=== PATIENT | male | born 1995 | race Two or more races ===

== ENCOUNTER 2016-05-08 13:24 | Emergency (ER) | payer OTHER ==
[2016-05-08 13:38] VITALS: BMI 27.8
--- NOTE | 2016-05-08 14:05 | PDOC ---
*Physical Exam - Vital Signs Last Vital Signs Temp Pulse Resp BP Pulse Ox 98.3 F 102 H 19 123/67 96 05/08/16 13:34 05/08/16 13:34 05/08/16 13:34 05/08/16 13:34 05/08/16 13:34 - Physical Exam Comments: 05/08/16 14:05 Pt seen by the Advanced Practice Provider under my direct supervision Pt interviewed and examined Ancillary studies reviewed I agree with plan as outlined by the Advanced Practice Provider ED Treatment Course - LABORATORY CBC & Chemistry Diagram: 05/08/16 14:50 05/08/16 14:50 *DC/Admit/Observation/Transfer Diagnosis at time of Disposition: Headache Qualifiers: Headache type: unspecified Headache chronicity pattern: acute headache Intractability: not intractable Qualified Code(s): R51 - Headache - Discharge Dispostion Disposition: HOME Condition at time of disposition: Good - Referrals Referrals: Mery Shin MD [Staff Physician] - Javier Suero [Primary Care Provider] - - Patient Instructions Printed Discharge Instructions: DI for Headache Additional Instructions: Please take Tylenol 650 mg every 6-8 hours for headache. Please eat small frequent meals thought the day and drinks plenty of water. please also follow-up with referred neurologist. - Post Discharge Activity Work/School Note: Back to Work
[2016-05-08] MEDS ORDERED: METOCLOPRAMIDE HCL INJECTION 10 MG/2 ML VIAL IVPB ONE (14:44)
[2016-05-08] MEDS ORDERED: SODIUM CHLORIDE 1,000 ML IV STA (14:44)
[2016-05-08] MEDS ORDERED: KETOROLAC TROMETHAMINE 30 MG/1 ML VIAL IVPUSH ONE (14:44)
[2016-05-08] MEDS ORDERED: METOCLOPRAMIDE HCL INJECTION 10 MG/2 ML VIAL ONE (14:56)
[2016-05-08] MEDS ORDERED: KETOROLAC TROMETHAMINE 30 MG/1 ML VIAL ONE (14:57)
[2016-05-08 15:04] LABS: BASOPHIL 0.4 % (0-2.0); EOSINOPHIL 1.1 % (0-4.5); MCH 27.6 pg (25.7-33.7); MCHC 33.6 g/dl (32.0-35.9); MEAN CELL VOLUME 82.2 fl (80-96); MEAN PLT VOLUME 7.2 fl (7.5-11.1); NEUTROPHILS 67.5 % (42.8-82.8); PLATELET COUNT 280 K/MM3 (134-434); RDW 13.5 % (11.9-15.9)
[2016-05-08 15:32] LABS: ALBUMIN 3.8 g/dl (3.4-5.0); ALK PHOS 117 U/L (45-117); ANION GAP 10 (8-16); BILIRUBIN,TOTAL 0.5 mg/dL (0.2-1.0); CALCIUM 8.9 mg/dL (8.5-10.1); CO2 25 mmol/L (21-32); CREATININE 0.7 mg/dL (0.7-1.3); GLUCOSE,RANDOM 96 mg/dL (74-106); MAGNESIUM 2.1 mg/dL (1.8-2.4); SGPT/ALT 38 U/L (12-78); TOT PROT 7.5 g/dl (6.4-8.2)
[2016-05-08 15:33] LABS: SGOT/AST 21 U/L (15-37)
--- NOTE | 2016-05-08 16:08 | PDOC ---
History of Present Illness - General Chief Complaint: Lightheaded Stated Complaint: DIZZINESS, HEADACHES Time Seen by Provider: 05/08/16 13:51 History Source: Patient Exam Limitations: No Limitations - History of Present Illness Initial Comments: 05/08/16 15:09 20-year-old male with no past medical history presents to the ED with some moderate frontal throbbing discomfort for the past 2 days now associated with dizziness, and nausea. Patient states has not been able to eat secondary to the above and has no complaints of neck stiffness, fever, chills, visual changes, recent head injury, recent travel, or recent illness. Patient states has had headaches like this in the past but never with nausea. Timing/Duration: other (2 days) Severity: mild Associated Symptoms: reports: headaches, nausea/vomiting, other (mild dizziness) Past History - Past Medical History Allergies/Adverse Reactions: Allergies Allergy/AdvReac Type Severity Reaction Status Date / Time Penicillins Allergy Intermediate Rash Verified 05/08/16 13:34 Asthma: Yes - Immunization History Immunization Up to Date: Yes - Psycho/Social/Smoking Cessation Hx Anxiety: No Suicidal Ideation: No Smoking History: Never smoked Have you smoked in the past 12 months: No Hx Alcohol Use: No Substance Use Type: None Patient Lives Alone: No Lives with/in: parents Review of Systems - Review of Systems Able to Perform ROS?: Yes Constitutional: Yes: Loss of Appetite HEENTM: No: Symptoms Reported Respiratory: No: Symptoms reported Cardiac (ROS): Yes: Lightheadedness ABD/GI: Yes: Nausea, Poor Appetite, Poor Fluid Intake Musculoskeletal: No: Symptoms Reported Integumentary: No: Symptoms Reported Neurological: Yes: Headache Endocrine: No: Symptoms Reported Hematologic/Lymphatic: No: Symptoms Reported *Physical Exam - Vital Signs Last Vital Signs Temp Pulse Resp BP Pulse Ox 98.3 F 102 H 19 123/67 96 05/08/16 13:34 05/08/16 13:34 05/08/16 13:34 05/08/16 13:34 05/08/16 13:34 - Physical Exam General Appearance: Yes: Nourished, Appropriately Dressed. No: Apparent Distress HEENT: positive: EOMI, CECILIA, TMs Normal, Pharynx Normal. negative: Pale Conjunctivae Neck: positive: Supple Respiratory/Chest: positive: Lungs Clear, Normal Breath Sounds. negative: Respiratory Distress, Accessory Muscle Use Cardiovascular: positive: Regular Rhythm, Regular Rate. negative: Murmur Gastrointestinal/Abdominal: positive: Soft. negative: Tenderness Extremity: positive: Normal Capillary Refill. negative: Pedal Edema Integumentary: positive: Normal Color, Warm, Moist Neurologic: positive: Normal Mood/Affect, Motor Strength 5/5 (ambulatory) ED Treatment Course - LABORATORY CBC & Chemistry Diagram: 05/08/16 14:50 05/08/16 14:50 - ADDITIONAL ORDERS Additional order review: Laboratory Results 05/08/16 14:50 Sodium 141 Potassium 4.1 Chloride 106 Carbon Dioxide 25 Anion Gap 10 BUN 12 Creatinine 0.7 Creat Clearance w eGFR > 60 Random Glucose 96 Calcium 8.9 Magnesium 2.1 Total Bilirubin 0.5 AST 21 ALT 38 Alkaline Phosphatase 117 Total Protein 7.5 Albumin 3.8 05/08/16 14:50 RBC 5.48 MCV 82.2 MCHC 33.6 RDW 13.5 MPV 7.2 L Neutrophils % 67.5 Lymphocytes % 24.8 Monocytes % 6.2 Eosinophils % 1.1 Basophils % 0.4 - Medications Given in the ED: ED Medications Discontinued Medications Generic Name Dose Route Start Last Admin Trade Name Freq PRN Reason Stop Dose Admin Sodium Chloride 1,000 mls @ 1,000 mls/hr 05/08/16 14:44 05/08/16 15:09 Normal Saline - IV 05/08/16 15:43 1,000 mls/hr ASDIR STA Administration Ketorolac Tromethamine 30 mg 05/08/16 14:44 05/08/16 15:10 Toradol Injection - IVPUSH 05/08/16 14:45 30 mg ONCE ONE Administration Metoclopramide HCl 10 mg 05/08/16 14:44 05/08/16 15:10 Reglan Injection - IVPB 05/08/16 14:45 10 mg ONCE ONE Administration Medical Decision Making - Medical Decision Making 05/08/16 15:41 Patient with complaints of headache, mild lightheadedness, nausea and poor by mouth intake for the past 2 days. Patient has no other complaints at this time. patient had no acute findings on exam. Patient with likely headache/ dehydration. Patient will be ordered for labs antiemetics, NSAID, and urine. 05/08/16 16:42 Selected Entries 05/08/16 16:30 Temperature 98.2 F Pulse Rate [ 92 H Left Radial] Respiratory 18 Rate Blood Pressure 117/53 [Left Arm] O2 Sat by Pulse 98 Oximetry (%) Laboratory Tests 05/08/16 05/08/16 05/08/16 14:50 14:50 16:09 WBC 10.0 Hgb 15.1 Hct 45.0 Neutrophils % 67.5 Sodium 141 Potassium 4.1 Chloride 106 Carbon Dioxide 25 Anion Gap 10 BUN 12 Creatinine 0.7 Random Glucose 96 Calcium 8.9 Magnesium 2.1 Total Bilirubin 0.5 AST 21 ALT 38 Urine Ketones Negative Urine Nitrite Negative Ur Leukocyte Esterase Negative Patient states feeling much better and eating a lunch tray. Patient be discharged home with recommendations to take Tylenol and given referral to migraine specialist Dr. Shin. *DC/Admit/Observation/Transfer Diagnosis at time of Disposition: Headache Qualifiers: Headache type: unspecified Headache chronicity pattern: acute headache Intractability: not intractable Qualified Code(s): R51 - Headache - Referrals Referrals: Javier Suero [Primary Care Provider] - Mery Shin MD [Staff Physician] - - Patient Instructions Printed Discharge Instructions: DI for Headache Additional Instructions: Please take Tylenol 650 mg every 6-8 hours for headache. Please eat small frequent meals thought the day and drinks plenty of water. please also follow-up with referred neurologist. - Post Discharge Activity Work/School Note: Back to Work
[2016-05-08 16:14] VITALS: BP 117/53; PULSE 92; TEMP 98.2
[2016-05-08 16:17] LABS: URINE APPEARANCE CLEAR; URINE BILIRUBIN NEGATIVE (NEGATIVE); URINE BLOOD NEGATIVE (NEGATIVE); URINE COLOR LTYELLOW; URINE GLUCOSE (UA) NEGATIVE (NEGATIVE); URINE KETONE NEGATIVE (NEGATIVE); URINE LEUK ESTERASE NEGATIVE (NEGATIVE); URINE NITRITE NEGATIVE (NEGATIVE); URINE PROTEIN NEGATIVE (NEGATIVE); URINE UROBILINOGEN NEGATIVE E.U./dl (0.2-1.0)
== END 2016-05-08 16:51 | disposition home or self-care (01) ==
LOC: JER 13:24
PROC: 3E0333Z Introduction of Anti-inflammatory into Peripheral Vein, Percutaneous Approach (ICD-10-PCS; principal; 2016-05-08)
PROC: 3E033GC Introduction of Other Therapeutic Substance into Peripheral Vein, Percutaneous Approach (ICD-10-PCS; 2016-05-08)
DX: R51 Headache (principal)
CPT/HCPCS: 36415; 80053; 81003; 83735; 85025; 99283-25

== ENCOUNTER 2018-02-16 13:37 | Emergency (ER) | payer OTHER ==
[2018-02-16 13:48] VITALS: BP 130/76; PULSE 110; TEMP 99.2; BMI 32.1
--- NOTE | 2018-02-16 14:52 | PDOC ---
History of Present Illness - General Chief Complaint: Respiratory Stated Complaint: Respiratory Time Seen by Provider: 02/16/18 14:05 History Source: Patient - History of Present Illness Timing/Duration: reports: other Associated Symptoms: reports: cough, nasal congestion. denies: earache, fever/ chills, shortness of breath, sore throat, wheezing Past History - Past Medical History Allergies/Adverse Reactions: Allergies Allergy/AdvReac Type Severity Reaction Status Date / Time Penicillins Allergy Intermediate Rash Verified 02/16/18 13:45 Asthma: Yes COPD: No - Immunization History Immunization Up to Date: Yes - Suicide/Smoking/Psychosocial Hx Smoking History: Never smoked Have you smoked in the past 12 months: No Hx Alcohol Use: No Drug/Substance Use Hx: No Substance Use Type: None Review of Systems - Review of Systems Constitutional: No: Chills, Fever Respiratory: Yes: Cough. No: Shortness of Breath, Wheezing Cardiac (ROS): No: Chest Pain *Physical Exam - Vital Signs Last Vital Signs Temp Pulse Resp BP Pulse Ox 99.2 F 110 H 18 130/76 98 02/16/18 13:46 02/16/18 13:46 02/16/18 13:46 02/16/18 13:46 02/16/18 13:46 - Physical Exam General Appearance: Yes: Appropriately Dressed. No: Apparent Distress HEENT: positive: Normal Voice Neck: positive: Supple. negative: Lymphadenopathy (R), Lymphadenopathy (L) Respiratory/Chest: positive: Lungs Clear, Normal Breath Sounds. negative: Respiratory Distress Cardiovascular: positive: Regular Rate, S1, S2 Integumentary: positive: Dry, Warm Neurologic: positive: Fully Oriented, Alert, Normal Mood/Affect Moderate Sedation - Procedure Monitoring Vital Signs: Procedure Monitoring Vital Signs Temperature 99.2 F 02/16/18 13:46 Pulse Rate 110 H 02/16/18 13:46 Respiratory Rate 18 02/16/18 13:46 Blood Pressure 130/76 02/16/18 13:46 O2 Sat by Pulse Oximetry (%) 98 02/16/18 13:46 Medical Decision Making - Medical Decision Making 02/16/18 14:49 22-year-old male, history of asthma, here with mostly non-productive cough with congestion 1 week. No shortness of breath, wheezing, chest pain, fever or chills. No tobacco history. No history of pneumonia. 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 States his job does not provide him a mask See exam M/l viral URI Tachy to 110 at triage, improved to 90 on my reassessment, chest/lungs clear -dc w/ supportive tx and pmd f/u as needed *DC/Admit/Observation/Transfer Diagnosis at time of Disposition: URI (upper respiratory infection) Qualifiers: URI type: unspecified viral URI Qualified Code(s): J06.9 - Acute upper respiratory infection, unspecified - Discharge Dispostion Disposition: HOME Condition at time of disposition: Good - Referrals - Patient Instructions Printed Discharge Instructions: DI for Viral Upper Respiratory Infection -- Adult - Post Discharge Activity Forms/Work/School Notes: Back to Work
== END 2018-02-16 15:20 | disposition home or self-care (01) ==
LOC: JERFT 13:37
DX: J06.9 Acute upper respiratory infection, unspecified (principal); B97.89 Other viral agents as the cause of diseases classified elsewhere; Z87.09 Personal history of other diseases of the respiratory system
CPT/HCPCS: 99281-25

== ENCOUNTER 2020-05-27 13:55 | Emergency (ER) | payer OTHER ==
[2020-05-27 13:59] VITALS: BP 159/79; PULSE 120; TEMP 98.4; BMI 34.8
[2020-05-27] MEDS ORDERED: SODIUM CHLORIDE 0.9% 500 ML INFUS.BAG IV ONE (15:35)
[2020-05-27] MEDS ORDERED: ACETAMINOPHEN 500 MG TABLET (FP) PO ONE (15:36)
[2020-05-27 15:55] LABS: BASO % 0.2 % (0-2.0); HEMATOCRIT 43.4 % (35.4-49); HEMOGLOBIN 14.5 GM/dL (11.7-16.9); MCH 27.7 pg (25.7-33.7); MCHC 33.3 g/dl (32.0-35.9); MEAN PLT VOLUME 7.1 fl (7.5-11.1); MONO % 12.5 % (3.8-10.2); NEUT % 77.3 % (42.8-82.8); PLATELET COUNT 260 K/MM3 (134-434); RBC 5.23 M/mm3 (4.00-5.60); RDW 13.8 % (11.9-15.9); WHITE BLOOD COUNT 6.2 K/mm3 (4.0-10.0)
[2020-05-27] MEDS ORDERED: ACETAMINOPHEN 325 MG TABLET (FP) ONE (16:13)
[2020-05-27 16:17] LABS: POTASSIUM 4.3 mmol/L (3.5-5.1)
[2020-05-27 16:19] LABS: CALCIUM 8.8 mg/dL (8.5-10.1)
[2020-05-27 16:20] LABS: ALBUMIN 3.7 g/dl (3.4-5.0); BLOOD UREA NITROGEN 9.3 mg/dL (7-18)
[2020-05-27 16:23] LABS: CREATININE 0.8 mg/dL (0.55-1.3)
[2020-05-27 16:25] LABS: BILIRUBIN,TOTAL 0.4 mg/dL (0.2-1); TOT PROT 7.5 g/dl (6.4-8.2)
== END 2020-05-27 17:37 | disposition home or self-care (01) ==
LOC: JER 13:55
DX: U07.1 COVID-19 (principal)
CPT/HCPCS: 36415; 71045-TC-FY; 80053; 85025; 99284-25; C9803; U0003

== ENCOUNTER 2020-09-13 10:13 | Emergency (ER) | payer OTHER ==
[2020-09-13 10:20] VITALS: TEMP 98.6; BMI 34.7
[2020-09-13] MEDS ORDERED: SODIUM CHLORIDE 1,000 ML IV STA (10:46)
[2020-09-13] MEDS ORDERED: ACETAMINOPHEN 1000 MG/100 ML VIAL (NON FORMULARY) IVPB ONE (10:46)
[2020-09-13] MEDS ORDERED: ONDANSETRON 4 MG/2 ML VIAL IVPUSH ONE (10:46)
[2020-09-13] MEDS ORDERED: ACETAMINOPHEN INJECTION 100 ML IVPB ONE (11:11)
[2020-09-13] MEDS ORDERED: ONDANSETRON 4 MG/2 ML VIAL ONE (11:12)
[2020-09-13 11:42] LABS: BASO % 0.4 % (0-2.0); EOS % 2.1 % (0-4.5); HEMATOCRIT 46.9 % (35.4-49); HEMOGLOBIN 15.5 GM/dL (11.7-16.9); LYMPH % 28.7 % (8-40); MCH 26.9 pg (25.7-33.7); MCHC 33.1 g/dl (32.0-35.9); MEAN CELL VOLUME 81.5 fl (80-96); MEAN PLT VOLUME 7.1 fl (7.5-11.1); MONO % 7.1 % (3.8-10.2); NEUT % 61.7 % (42.8-82.8); PLATELET COUNT 365 10^3/uL (134-434); RBC 5.76 M/mm3 (4.00-5.60); RDW 13.8 % (11.9-15.9); WHITE BLOOD COUNT 10.2 K/mm3 (4.0-10.0)
[2020-09-13 11:51] LABS: INR 1.04 (0.83-1.09); PROTHROMBIN TIME (PATIENT) 12.8 SEC (9.7-13.0)
[2020-09-13 11:55] LABS: URINE APPEARANCE Clear; URINE BILIRUBIN Negative (NEGATIVE); URINE COLOR Yellow; URINE GLUCOSE (UA) Negative (NEGATIVE); URINE KETONE Negative (NEGATIVE); URINE LEUK ESTERASE Negative (NEGATIVE); URINE NITRITE Negative (NEGATIVE); URINE PROTEIN Negative (NEGATIVE); URINE UROBILINOGEN 0.2 mg/dL (0.2-1.0)
[2020-09-13 12:08] LABS: ALBUMIN 3.8 g/dl (3.4-5.0); CALCIUM 8.8 mg/dL (8.5-10.1)
[2020-09-13 12:09] LABS: BLOOD UREA NITROGEN 10.2 mg/dL (7-18)
[2020-09-13 12:12] LABS: CREATININE 0.7 mg/dL (0.55-1.3)
[2020-09-13 12:14] LABS: BILIRUBIN,TOTAL 0.7 mg/dL (0.2-1); TOT PROT 7.9 g/dl (6.4-8.2)
[2020-09-13 16:32] VITALS: BP 139/83; PULSE 76
== END 2020-09-13 16:25 | disposition home or self-care (01) ==
LOC: JER 10:13
PROC: 3E033NZ Introduction of Analgesics, Hypnotics, Sedatives into Peripheral Vein, Percutaneous Approach (ICD-10-PCS; principal; 2020-09-13)
PROC: 3E033GC Introduction of Other Therapeutic Substance into Peripheral Vein, Percutaneous Approach (ICD-10-PCS; 2020-09-13)
PROC: 3E0337Z Introduction of Electrolytic and Water Balance Substance into Peripheral Vein, Percutaneous Approach (ICD-10-PCS; 2020-09-13)
DX: R10.84 Generalized abdominal pain (principal)
CPT/HCPCS: 36415; 74177-TC; 80053; 81003; 85025; 85610; 86850; 86900; 86901; 87086; 93005; 93010; 99285-25; J0131; Q9967

== ENCOUNTER 2021-01-02 18:58 | Emergency (ER) | payer OTHER ==
[2021-01-02 19:05] VITALS: BP 130/83; PULSE 100; TEMP 97.9; BMI 34.8
== END 2021-01-02 19:33 | disposition home or self-care (01) ==
LOC: JERFT 18:58
DX: R21 Rash and other nonspecific skin eruption (principal)
CPT/HCPCS: 99281-25

== ENCOUNTER 2021-06-02 16:58 | Emergency (ER) | payer OTHER ==
[2021-06-02 17:26] VITALS: BP 109/72; PULSE 73; TEMP 98.3; BMI 34.8
[2021-06-02] MEDS ORDERED: LIDOCAINE HCL 1%, 10 MG/ML (20ML VIAL) ONE (17:51)
[2021-06-02] MEDS ORDERED: IBUPROFEN 600 MG TABLET (FP) PO ONE ×2 (18:39→18:40)
[2021-06-02] MEDS ORDERED: LIDOCAINE HCL 1%, 10 MG/ML (50 mL VIAL) SQ ONE (18:39)
== END 2021-06-02 18:35 | disposition home or self-care (01) ==
LOC: JER 16:58
DX: L60.0 Ingrowing nail (principal)
CPT/HCPCS: 99283-25

== ENCOUNTER 2021-12-02 04:30 | Emergency (ER) | payer OTHER ==
[2021-12-02 04:49] VITALS: BP 142/89; PULSE 96; RESP 17; TEMP 98.5; BMI 41.8
[2021-12-02] MEDS ORDERED: ONDANSETRON 4 MG/2 ML VIAL IVPUSH ONE (05:09)
[2021-12-02] MEDS ORDERED: MAG HYDROX/AL HYDROX/SIMETH -MYLANTA- ORAL SUSPENSION PO ONE (05:09)
[2021-12-02] MEDS ORDERED: FAMOTIDINE 20 MG/50 ML IVPB 20 MG/50 ML MG IVPB ONE ×2 (05:09→05:57)
[2021-12-02] MEDS ORDERED: ACETAMINOPHEN 1000 MG/100 ML BAG IVPB ONE (05:09)
[2021-12-02] MEDS ORDERED: LACTATED RINGERS SOLUTION 1000 ML INFUS.BAG IV ONE (05:09)
[2021-12-02] MEDS ORDERED: MAG HYDROX/AL HYDROX/SIMETH 30 ML UNIT-DOSE CUP ONE (05:14)
[2021-12-02] MEDS ORDERED: ACETAMINOPHEN INJECTION 100 ML IVPB ONE (05:14)
[2021-12-02] MEDS ORDERED: ONDANSETRON 4 MG/2 ML VIAL ONE (05:20)
[2021-12-02 06:03] LABS: BASO % 0.3 % (0-2.0); EOS % 3.5 % (0-4.5); HEMATOCRIT 42.6 % (35.4-49); HEMOGLOBIN 14.2 GM/dL (11.7-16.9); LYMPH % 19.7 % (8-40); MCH 26.4 pg (25.7-33.7); MCHC 33.2 g/dl (32.0-35.9); MEAN CELL VOLUME 79.6 fl (80-96); MEAN PLT VOLUME 7.1 fl (7.5-11.1); MONO % 6.3 % (3.8-10.2); NEUT % 70.2 % (42.8-82.8); PLATELET COUNT 322 10^3/uL (134-434); RBC 5.36 M/mm3 (4.00-5.60); RDW 14.1 % (11.9-15.9); WHITE BLOOD COUNT 10.6 K/mm3 (4.0-10.0)
[2021-12-02 06:27] LABS: CALCIUM 8.7 mg/dL (8.5-10.1)
[2021-12-02 06:28] LABS: ALBUMIN 3.4 g/dl (3.4-5.0); BLOOD UREA NITROGEN 9.3 mg/dL (7-18)
[2021-12-02 06:31] LABS: CREATININE 0.7 mg/dL (0.55-1.3)
[2021-12-02 06:32] LABS: TOT PROT 7.2 g/dl (6.4-8.2)
[2021-12-02 06:33] LABS: BILIRUBIN,TOTAL 0.4 mg/dL (0.2-1)
== END 2021-12-02 06:59 | disposition home or self-care (01) ==
LOC: JER 04:30
PROC: 3E0333Z Introduction of Anti-inflammatory into Peripheral Vein, Percutaneous Approach (ICD-10-PCS; principal; 2021-12-02)
PROC: 3E033GC Introduction of Other Therapeutic Substance into Peripheral Vein, Percutaneous Approach (ICD-10-PCS; 2021-12-02)
PROC: 3E033GC Introduction of Other Therapeutic Substance into Peripheral Vein, Percutaneous Approach (ICD-10-PCS; 2021-12-02)
DX: R10.10 Upper abdominal pain, unspecified (principal); R19.7 Diarrhea, unspecified; R11.2 Nausea with vomiting, unspecified
CPT/HCPCS: 0241U-QW; 36415; 80053; 83690; 84484; 85025; 93005; 93010; 99284-25

== ENCOUNTER 2021-12-12 13:36 | Emergency (ER) | payer OTHER ==
[2021-12-12 13:50] VITALS: BP 130/75; PULSE 103; RESP 20; TEMP 98.3; BMI 36.2
[2021-12-12 16:19] LABS: THROAT:GRP A STREP NOT DETECTED (NOTDETECTED)
== END 2021-12-12 16:47 | disposition home or self-care (01) ==
LOC: JERFT 13:36
DX: J02.9 Acute pharyngitis, unspecified (principal)
CPT/HCPCS: 0241U-QW; 87651; 99283-25

== ENCOUNTER 2022-02-09 13:31 | Emergency (ER) | payer OTHER ==
[2022-02-09 13:50] VITALS: BP 121/74; PULSE 100; RESP 18; TEMP 99.5; BMI 34.8
== END 2022-02-09 15:49 | disposition home or self-care (01) ==
LOC: JER 13:31
DX: J06.9 Acute upper respiratory infection, unspecified (principal)
CPT/HCPCS: 0241U-QW; 99283-25

== ENCOUNTER 2022-06-17 12:46 | Emergency (ER) | payer OTHER ==
[2022-06-17 13:05] VITALS: BP 111/74; PULSE 98; RESP 20; TEMP 99.1; BMI 33.5
[2022-06-17] MEDS ORDERED: ACETAMINOPHEN 500 MG TABLET (FP) PO ONE (14:37)
[2022-06-17] MEDS ORDERED: DIPHTH,PERTUSS(ACELL),TET 0.5 ML DISP.SYRIN IM ONE (14:37)
[2022-06-17 15:52] LABS: BASO % 0.8 % (0-2.0); EOS % 1.8 % (0-4.5); HEMATOCRIT 41.5 % (35.4-49); HEMOGLOBIN 14.4 GM/dL (11.7-16.9); LYMPH % 23.2 % (8-40); MCH 26.9 pg (25.7-33.7); MCHC 34.7 g/dl (32.0-35.9); MEAN CELL VOLUME 77.5 fl (80-96); MEAN PLT VOLUME 7.1 fl (7.5-11.1); MONO % 7.3 % (3.8-10.2); NEUT % 66.9 % (42.8-82.8); PLATELET COUNT 279 10^3/uL (134-434); RBC 5.35 M/mm3 (4.00-5.60); RDW 14.4 % (11.9-15.9); WHITE BLOOD COUNT 6.3 K/mm3 (4.0-10.0)
[2022-06-17 16:05] LABS: INR 1.11 (0.83-1.09); PROTHROMBIN TIME (PATIENT) 12.9 SEC (9.7-13.0)
[2022-06-17 16:06] LABS: ACTIVATED PTT 33.9 SECONDS (25.2-36.5)
[2022-06-17 16:13] LABS: BLOOD UREA NITROGEN 7.6 mg/dL (7-18); MAGNESIUM 2.2 mg/dL (1.8-2.4)
[2022-06-17 16:14] LABS: ALBUMIN 3.5 g/dl (3.4-5.0)
[2022-06-17 16:17] LABS: BILIRUBIN,TOTAL 0.5 mg/dL (0.2-1); CREATININE 0.6 mg/dL (0.55-1.3); TOT PROT 7.4 g/dl (6.4-8.2)
[2022-06-17 16:23] LABS: PH,URINE 6.5 (5.0-8.0); URINE APPEARANCE CLEAR; URINE BILIRUBIN NEGATIVE (NEGATIVE); URINE COLOR YELLOW; URINE GLUCOSE (UA) NEGATIVE (NEGATIVE); URINE KETONE 1+ (NEGATIVE); URINE LEUK ESTERASE NEGATIVE (NEGATIVE); URINE NITRITE NEGATIVE (NEGATIVE); URINE PROTEIN TRACE (NEGATIVE)
[2022-06-17] MEDS ORDERED: FAMOTIDINE 20 MG/50 ML IVPB 20 MG/50 ML MG IVPB ONE (17:44)
[2022-06-17] MEDS ORDERED: MAG HYDROX/AL HYDROX/SIMETH 30 ML UNIT-DOSE CUP PO ONE (17:44)
[2022-06-17] MEDS ORDERED: ONDANSETRON 4 MG/2 ML VIAL IVPUSH ONE (17:44)
== END 2022-06-17 19:29 | disposition home or self-care (01) ==
LOC: JER 12:46
DX: R10.84 Generalized abdominal pain (principal); R11.2 Nausea with vomiting, unspecified; R63.0 Anorexia; Z20.822 Contact with and (suspected) exposure to COVID-19
CPT/HCPCS: 0241U-QW; 36415; 74177-TC; 80053; 81003; 83690; 83735; 85025; 85610; 85730; 86850; 86900; 86901; 87086; 93005; 93010; 99285-25; Q9967

== ENCOUNTER 2022-09-04 20:19 | Emergency (ER) | payer OTHER ==
[2022-09-04 20:25] VITALS: BP 114/75; PULSE 101; RESP 18; TEMP 97; BMI 47.1
[2022-09-04] MEDS ORDERED: ACETAMINOPHEN 325 MG TABLET (FP) PO ONE (21:04)
[2022-09-04] MEDS ORDERED: IBUPROFEN 400 MG TABLET (FP) PO ONE ×2 (21:04→21:08)
[2022-09-04] MEDS ORDERED: ACETAMINOPHEN 325 MG TABLET (FP) ONE (21:08)
== END 2022-09-04 22:07 | disposition home or self-care (01) ==
LOC: JERFT 20:19
DX: S80.11XA Contusion of right lower leg, initial encounter (principal); W22.8XXA Striking against or struck by other objects, initial encounter
CPT/HCPCS: 73562-TC-RT-FY; 73590-TC-RT-FY; 99283-25

== ENCOUNTER 2022-10-09 04:54 | Emergency (ER) | payer OTHER ==
[2022-10-09 05:00] VITALS: BMI 87.6
[2022-10-09] MEDS ORDERED: ACETAMINOPHEN 1000 MG/100 ML BAG IVPB ONE (05:30)
[2022-10-09] MEDS ORDERED: ACETAMINOPHEN INJECTION 100 ML IVPB ONE (05:32)
[2022-10-09 06:32] LABS: BASO % 0.3 % (0-2.0); EOS % 2.2 % (0-4.5); HEMATOCRIT 41.7 % (35.4-49); HEMOGLOBIN 13.6 GM/dL (11.7-16.9); LYMPH % 27.4 % (8-40); MCHC 32.6 g/dl (32.0-35.9); MEAN CELL VOLUME 79.6 fl (80-96); NEUT % 63.1 % (42.8-82.8); PLATELET COUNT 306 10^3/uL (134-434); RBC 5.23 M/mm3 (4.00-5.60); WHITE BLOOD COUNT 9.5 K/mm3 (4.0-10.0)
[2022-10-09 06:45] LABS: INR 1.05 (0.83-1.09); PROTHROMBIN TIME (PATIENT) 12.2 SEC (9.7-13.0)
[2022-10-09 06:48] VITALS: PULSE 94
[2022-10-09 06:48] LABS: ACTIVATED PTT 31.2 SECONDS (25.2-36.5)
[2022-10-09 06:49] LABS: POTASSIUM 4.5 mmol/L (3.5-5.1)
[2022-10-09 06:51] LABS: CALCIUM 8.3 mg/dL (8.5-10.1)
[2022-10-09 06:52] LABS: ALBUMIN 3.4 g/dl (3.4-5.0); BLOOD UREA NITROGEN 12.4 mg/dL (7-18)
[2022-10-09 06:55] LABS: CREATININE 0.9 mg/dL (0.55-1.3)
[2022-10-09 06:56] LABS: BILIRUBIN,TOTAL 0.2 mg/dL (0.2-1)
[2022-10-09 06:57] LABS: TOT PROT 7.1 g/dl (6.4-8.2)
[2022-10-09 07:44] VITALS: BP 124/75; RESP 16; TEMP 97.9
== END 2022-10-09 10:03 | disposition home or self-care (01) ==
LOC: JER 04:54
PROC: 3E033NZ Introduction of Analgesics, Hypnotics, Sedatives into Peripheral Vein, Percutaneous Approach (ICD-10-PCS; principal; 2022-10-09)
DX: R07.9 Chest pain, unspecified (principal); R06.02 Shortness of breath
CPT/HCPCS: 36415; 71046-TC-FY; 71275-TC; 80053; 84484; 85025; 85379; 85610; 85730; 93005; 93010; 96374; 99285-25; Q9967

== ENCOUNTER 2023-07-07 09:57 | Emergency (ER) | payer OTHER ==
[2023-07-07 10:06] VITALS: BP 112/80; PULSE 88; RESP 20; TEMP 98.3; BMI 42.5
[2023-07-07] MEDS ORDERED: KETOROLAC TROMETHAMINE 30 MG/1 ML VIAL ONE (10:52)
[2023-07-07] MEDS: KETOROLAC TROMETHAMINE 30 MG/1 ML VIAL IM ONE (10:56)
== END 2023-07-07 11:57 | disposition home or self-care (01) ==
LOC: JERFT 09:57
PROC: 3E023GC Introduction of Other Therapeutic Substance into Muscle, Percutaneous Approach (ICD-10-PCS; principal; 2023-07-07)
DX: S99.921A Unspecified injury of right foot, initial encounter (principal); W20.8XXA Other cause of strike by thrown, projected or falling object, initial encounter; Y99.0 Civilian activity done for income or pay
CPT/HCPCS: 73610-TC-RT-FY; 73630-TC-RT-FY; 99284-25

== ENCOUNTER 2024-06-25 15:00 | Emergency (ER) | payer OTHER ==
[2024-06-25 15:22] VITALS: BMI 35.5
[2024-06-25] MEDS ORDERED: ALBUTEROL SO4 2.5/IPRATROPIUM 0.5 INH SOL 3 ML VIAL.NEB. NEB ONE (15:51)
[2024-06-25] MEDS: ALBUTEROL SO4 2.5/IPRATROPIUM 0.5 INH SOL 3 ML VIAL.NEB. NEB ONE (15:56)
[2024-06-25] MEDS ORDERED: ACETAMINOPHEN 500 MG TABLET (FP) ONE (17:25)
[2024-06-25] MEDS: ACETAMINOPHEN 500 MG TABLET (FP) PO ONE (17:26)
[2024-06-25 18:24] VITALS: BP 126/71; PULSE 96; RESP 18; TEMP 99.4
== END 2024-06-25 18:30 | disposition home or self-care (01) ==
LOC: JERFT 15:00
PROC: 3E0F7GC Introduction of Other Therapeutic Substance into Respiratory Tract, Via Natural or Artificial Opening (ICD-10-PCS; principal; 2024-06-25)
DX: U07.1 COVID-19 (principal); R05.9 Cough, unspecified; R09.81 Nasal congestion; R68.83 Chills (without fever)
CPT/HCPCS: 0241U-QW; 99283-25